=== PATIENT | male | born 2000 | race Caucasian/White ===

== ENCOUNTER 2023-06-26 17:45 | Emergency (ER) | payer BC ==
[~2023-06-26] VITALS: Ht 177.8 cm; Wt 59.0 kg
[2023-06-26 17:47] VITALS: O2SAT 100
[2023-06-26] MEDS ORDERED: ERYTHROMYCIN (OPTH) 3.5 GM OINT OP ONE (18:04)
== END 2023-06-26 18:11 | disposition home or self-care (01) ==
LOC: FSED 17:49
DX: S05.02XA Injury of conjunctiva and corneal abrasion without foreign body, left eye, initial encounter (principal); W22.8XXA Striking against or struck by other objects, initial encounter; Y92.89 Other specified places as the place of occurrence of the external cause
CPT/HCPCS: 99283